=== PATIENT | male | born 1995 ===

== ENCOUNTER 2024-07-11 09:04 | Emergency (ER) | payer MEDICAID, SELFPAY ==
--- NOTE | ~2024-07-11 | XR_ITS ---
EXAMINATION: XR CHEST CLINICAL INFORMATION: 28-year-old male with cough COMPARISON: None available. TECHNIQUE: AP and lateral views of the chest were obtained. FINDINGS: There are patchy right lower lobe airspace disease suggestive for pneumonia. Rest of lungs are clear. Cardiomediastinal silhouette is normal. XR/XR chest 2V IMPRESSION: Right lower lobe pneumonia Electronically signed by: Alisha Baxter MD 07/11/2024 09:46 AM EDT
[2024-07-11 09:06] VITALS: BP 126/77; PULSE 93; RESP 18; TEMP 36.6; O2SAT 94; BMI 30.4
--- NOTE | 2024-07-11 09:52 | ED.URI ---
HPI - URI/Sore Throat General Chief Complaint: Upper Respiratory Symptoms Stated Complaint: persistent cough, spitting blood Time Seen by Provider: 07/11/24 09:19 Source: patient and family Mode of arrival: ambulatory Limitations: no limitations History of Present Illness ED Provider: Alonso Acevedo PA-C HPI Narrative: 28-year-old male with history of childhood asthma presents to the ER for evaluation of cough for the last 10 days. He reports he had fever and chills in the beginning of his illness that has since resolved. The last 3 days he has started bringing up brown phlegm with blood-tinged sputum at times. He is not on a blood thinner. He denies any recent travel. Patient denies any chest pain or difficulty breathing. He has not been wheezing. No further fevers or chills. No abdominal pain, nausea, vomiting, diarrhea. No leg swelling. MD elicited complaint: fever and cough Onset (ago): day(s) (10) Consistency: progressively worsening Severity: moderate Description of mucous: bloody and other (brown) Able to tolerate fluids by mouth: Yes Exacerbating factors: nothing Relieving factors: nothing Associated symptoms: fever, chills, nasal congestion and cough Treatments prior to arrival: none Related Data Previous Rx's ?Medication ?Instructions ?Recorded albuterol sulfate 90 mcg/actuation 2 puff inhalation QID PRN 07/11/24 aerosol inhaler shortness of breath or wheezing #6.7 grams amoxicillin 875 mg-potassium 1 tab PO BID #20 tabs 07/11/24 clavulanate 125 mg tablet azithromycin 250 mg tablet See Rx Instructions PO .COMPLEX #6 07/11/24 (Zithromax Z-Merlin) tabs prednisone 20 mg tablet 40 mg (2 x 20 mg) PO DAILY #10 tabs 07/11/24 Allergies Allergy/AdvReac Type Severity Reaction Status Date / Time No Known Allergies Allergy Verified 07/11/24 09:12 Review of Systems Review of Systems: Yes all other systems are reviewed and are negative PMFSH Social History Social History Advance Directives: No Advance Directives Information Provided: No Physical Exam Vital Signs: Vital Signs: Last Vital Signs Temp 97.9 F 07/11/24 09:06 Pulse 93 07/11/24 09:06 Resp 18 07/11/24 09:06 BP 126/77 07/11/24 09:06 Pulse Ox 94 08/24/24 09:06 O2 Del Method Room Air 07/11/24 09:06 BMI result Body Mass Index 30.4 Appearance: Alert. Oriented X3. No acute distress. Head: normocephalic, atraumatic. Eyes: Pupils equal, round and reactive to light. ENT: Pharynx normal. No tonsillar swelling or exudate. Neck: Normal inspection. Neck supple. CVS: Normal heart rate and rhythm. Pulses normal. Respiratory: No respiratory distress. Breath sounds with coarse BS in the RLL, intermittent expiratory wheeze Abdomen: Soft and nontender. +BS x4 Skin: Skin warm and dry. Normal skin color. Normal skin turgor. No rashes. Extremities: No lower extremity edema. No joint swelling. Negative Eliezer's sign Neuro/psych: Oriented X 3. Grossly normal, nonfocal Normal speech and cognition. Medical Decision Making Medical Decision Making [facility] Narrative: 28-year-old male with history of childhood asthma, no other medical problems presents to the ER for evaluation of cough for the last 10 days, newly productive of brown phlegm with blood-tinged sputum intermittently. His vital signs are stable on arrival. He is oxygenating well. He does have some right lower lobe adventitious lung sounds with wheezing on expiration, coarse breath sounds in this area. His x-ray was reviewed and is consistent with a right lower lobe pneumonia. This is most likely the etiology of his blood-tinged sputum and brown phlegm, as strep pneumoniae is known to cause this. Low clinical suspicion for PE. Comfortable with initiation of antibiotics, steroids, mucolytics and bronchodilators and discharge home. We talked about return precautions including shortness of breath, chest pain, and difficulty breathing. Stable for discharge home. Differential Diagnosis Differential Diagnoses: The differential diagnosis associated with the presentation includes Pneumonia, bronchitis, COVID, flu, TB, PE Lab Data [facility] Lab Attestation statement: I reviewed the patient's lab results. Negative viral studies Labs: Lab Results 07/11/24 Range/Units 09:22 Influenza Type A (PCR) NEGATIVE (Negative) Influenza Type B (PCR) NEGATIVE (Negative) RSV RNA Qual (PCR) NEGATIVE (Negative) SARS-CoV-2 RNA (RT-PCR) NEGATIVE (Negative) Independent Interpretation I performed an independent interpretation of an: Plain X-Ray Interpretation: Infiltrate in the right lower lobe consistent with pneumonia Radiology Impression Discussion of test interpretation with radiology: I have reviewed the radiologist's reading. Radiologist Impression: EXAMINATION: XR CHEST CLINICAL INFORMATION: 28-year-old male with cough COMPARISON: None available. TECHNIQUE: AP and lateral views of the chest were obtained. FINDINGS: There are patchy right lower lobe airspace disease suggestive for pneumonia. Rest of lungs are clear. Cardiomediastinal silhouette is normal. XR/XR chest 2V IMPRESSION: Right lower lobe pneumonia Independent Historian Clinical information obtained from an independent historian. History obtained from or confirmed by: Spouse Tests considered The following testing was considered but not selected: Consider CT angiogram to rule out PE however he was found to have right lower lobe pneumonia can explain his symptoms Prescription Management I considered prescription management with: Antibiotic Critical Care Time Critical Care Time Critical Care Time: No Discharge Plan Discharge Clinical Impression: RLL pneumonia Qualifiers: Pneumonia type: due to unspecified organism Qualified Code(s): J18.9 - Pneumonia, unspecified organism Patient Disposition: Home, Self-Care Instructions: Community Acquired Pneumonia (DC) Additional Instructions: You tested negative for COVID, flu, RSV. Your chest x-ray shows pneumonia Take the prescribed antibiotics as directed, complete the entire course and do not miss any doses Recommend over the counter Mucinex 1200 mg two times per day Take over the counter cold/flu medications as needed for your symptoms. If you develop new or worsening symptoms call 911 or come back to the ER for further evaluation. Prescriptions: New amoxicillin-pot clavulanate 875-125 mg tablet 1 tab PO BID Qty: 20 0RF azithromycin [Zithromax Z-Merlin] 250 mg tablet See Rx Instructions .ROUTE .COMPLEX Qty: 6 0RF Rx Instructions: take 500 mg today (day 1), then 250 mg for 4 days (days 2-5) prednisone 20 mg tablet 40 mg PO DAILY Qty: 10 0RF albuterol sulfate 90 mcg/actuation HFA aerosol inhaler 2 puff inhalation QID PRN (Reason: shortness of breath or wheezing) Qty: 6.7 0RF Stand Alone Forms: Work/School Release Print Language: Welsh
[2024-07-11 10:11] LABS: Influenza A PCR NEGATIVE (Negative); Influenza B PCR NEGATIVE (Negative); Resp Syncy Virus RNA Qual PCR NEGATIVE (Negative); SARS COV2 PCR INHOUSE NEGATIVE (Negative)
[2024-07-11 10:22] VITALS: BP 121/72; PULSE 90; RESP 18; TEMP 36.6; O2SAT 94
== END 2024-07-11 10:23 | disposition home or self-care (01) ==
PROVIDERS: Emergency Provider Emergency Medicine
DX: J18.9 Pneumonia, unspecified organism (principal); Z03.818 Encounter for observation for suspected exposure to other biological agents ruled out; R05.9 Cough, unspecified
CPT/HCPCS: 0241U; 71046; 99282; 99283

== ENCOUNTER 2025-09-30 15:55 | Emergency (ER) | payer MEDICAID, SELFPAY ==
[2025-09-30 16:00] VITALS: BP 138/82; PULSE 80; RESP 18; TEMP 36.7; O2SAT 98; BMI 28.8
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
[2025-09-30 16:28] VITALS: BP 138/82; PULSE 80; RESP 18; TEMP 36.7; O2SAT 98
--- OUTSIDE RECORDS SUMMARY | 2025-09-30 18:52 | XMS_ITS | Encounter Summary ---
Author Organization [facility] Address [address] [place] [address] Care Team Providers Care Registered Dental Assistant Rda Name Role Phone Unavailable Primary Care Provider Unavailabl e Encounter Details Date Type Department Care Team (Latest Contact Info) Description 05/08/2019 Abstract [facility] CONVERSIONS Dental, Provider, DDS Social History Tobacco Use Types Packs/Day Years Used Date Smoking Tobacco: Never Assessed Sex and Gender Information Value Date Recorded Sex Assigned at Male 09/17/2022 10:31 AM EDT Legal Sex Male 10:31 AM EDT Gender Identity Not on file Sexual Orientation Not on file documented as of this encounter Plan of Treatment Not on file documented as of this encounter Visit Diagnoses Not on filedocumented in this encounter
--- OUTSIDE RECORDS SUMMARY | 2025-09-30 18:52 | XMS_ITS | Clinical Summary ---
Author Organization [employer] Address [address] [place] [address] Care Team Providers Care Site Foreman Name Role Phone Unavailable Primary Care Provider Unavailabl e Social History Tobacco Use Types Packs/Day Years Used Date Smoking Tobacco: Never Assessed Sex and Gender Information Value Date Recorded Sex Assigned at Male 09/17/2022 10:31 AM EDT Legal Sex Male 10:31 AM EDT Gender Identity Not on file Sexual Orientation Not on file Plan of Treatment Health Maintenance Due Date Last Done Comments Depression Screening 1993 Disability Screening 1993 Alcohol/Substance Use Screening 2005 Tobacco Screening 2005 Family Planning (PISQ) 2008 HPV Vaccines (1 - Male 3-dos e series) 2008 DTaP/Tdap/Td Vaccines (1 - Tdap) 2012 Hepatitis B Vaccines (1 of 3 - 19+ 3-dose series) 2012 COVID-19 Vaccine (1 - 2023-2 5 season) 2025 Influenza Vaccine (#1) 2025 Zoster Vaccines (1 of 2) 2043 RSV Patients and Pa tients Aged 60 years or older (1 - 1-dose 75+ series) 2068 HIB Vaccines Aged Out No longer eligi ble based on patient's age to complete this topic Hepatitis A Vaccines Aged Out No long er eligible based on patient's age to complete this topic IPV Vaccines Aged Out No longer eligi ble based on patient's age to complete this topic Meningococcal B Vaccine Aged Out No l onger eligible based on patient's age to complete this topic Meningococcal Vaccine Aged Out No karissa simon eligible based on patient's age to complete this topic Pneumococcal Vaccine: Pediat rics (0 to 5 Years) and At-Risk Patients (6 to 49) Years Aged Out No longer eligible b ased on patient's age to complete this topic RSV under 20 months Aged Out No longe r eligible based on patient's age to complete this topic Rotavirus Vaccines Aged Out No longer eligible based on patient's age to complete this topic
== END 2025-09-30 17:07 | disposition home or self-care (01) ==
LOC: HO.ED 16:25
PROVIDERS: Emergency Provider Emergency Medicine
DX: T24.111A Burn of first degree of right thigh, initial encounter (principal); T31.0 Burns involving less than 10% of body surface; X08.8XXA Exposure to other specified smoke, fire and flames, initial encounter; Y93.9 Activity, unspecified; Y92.9 Unspecified place or not applicable; Y99.8 Other external cause status
CPT/HCPCS: 99282